=== PATIENT | male | born 1975 | race Caucasian/White ===

== ENCOUNTER 2020-02-13 09:50 | Day surgery (SDC) | payer OTHER ==
[~2020-02-13] VITALS: Ht 175.3 cm; Wt 79.4 kg
--- NOTE | ~2020-02-13 | OR ---
[facility] [address], [place] [address] Cancelled DATE OF OPERATION: 02/13/2020 SURGEON: Marissa Yousif MD CONTINUATION: INDICATIONS: The patient has failed medical treatment. His symptoms have continued on despite medical treatment. CT scan and his history and exam were consistent with the above diagnoses and surgery was indicated. The patient also had a large spur stabbing into the inferior turbinate on the right side and that needs to be corrected both for headaches as well as airway. DESCRIPTION OF PROCEDURE: The patient was placed in a supine position, had an orotracheal intubation, and was placed under general anesthesia. Photographs were taken preoperatively, intraoperatively, and postoperatively. The left side was approached first on undeviated septal side. The middle turbinate and uncinate process were injected with a couple of mL of 1% lidocaine with 1:100,000 epinephrine. The anterior inferior portion of the middle turbinate was trimmed away with Kerrison forceps, a Thru-cut ethmoid punch, and a microdebrider. A sickle knife was used to incise the uncinate process, then a Thru-cut ethmoid punch was used to cut through that and opened up the maxillary ostium. The patient had a very medial wall of the maxillary sinus. It was removed in the interest of airway and making the posterior section of the ethmoids better. The ethmoid intersinus septations were removed with Thru-cut ethmoid punch, Kerrison forceps. A transethmoidal sphenoidotomy was performed into the small sphenoid sinus on the left side. Changing to the scope of a 70-degree scope looking at the base of the skull, the bone was very thin in the posterior ethmoids area. This was noted on CT scan and that area was untouched with any instrumentation. Coming anterior to that the intersinus septations were removed, going up to the base of skull and up into the frontal recess. The anterior ethmoids and the frontal sinus had lots of polypoid mucosa or polyps. These were removed with a microdebrider, with a curved blade as well as the microdebrider and the Thru-cut ethmoid punch. A Kerrison frontal sinus punch was used to remove the beak of the frontal sinus widely, then removing all of the shards of bone and ragged mucosa carefully. NasoPore was placed with some mupirocin ointment. The septum was then repaired, making an incision on the right side after injecting the couple of mL of lidocaine. Incision was made with a 15 blade. The caudal dissection tool was used to lift up the mucoperichondrium and then mucoperiosteum deeper up inside. A D-knife was used to separate that bone from cartilage and then a blunt dissection to the blunt side of the caudal tool was used to lift up the mucoperiosteum on the PATIENT NAME: OMER MATTHEW OPERATIVE REPORT DATE OF : 73 REPORT #: [id number] PHYSICIAN: MARISSA YOUSIF MD PCP: NO PRIMARY CARE PHYSICIAN REPORT IS CONFIDENTIAL AND NOT TO BE RELEASED WITHOUT AUTHORIZATION [facility] [address], [place] [address] Cancelled contralateral side. Sykes scissors were used to section the deviated pieces of bone, so as not to produce any torsion on the cribriform plate. Inferiorly, the angulated chisel was used to cut the cleft and to take the large spur out. The flaps were then wasted together with 4-0 gut and the anterior incision was closed with 4-0 chromic[address] This opened the way to do the right sinus dissection. It was done precisely the same manner as the left side after injecting a couple of mL of lidocaine. The uncinate process was incised and removed. The ethmoid dissection was done completely. A transethmoidal sphenoidotomy performed on the right side. Using the 70 degrees scope, looking at the ceiling coming back, frontal sinus was opened widely. It was noted that a polyp was blocked in the sphenoid sinus on the the much larger of the 2 sinuses and lots of polypoid mucosa blocking the frontal sinus on the right side as well. A complete ethmoidectomy was performed trimming all of the shards of bone and ragged mucosa carefully. More NasoPore was placed with mupirocin ointment on the right side. That was the end of the procedure. Estimated blood was about 300 mL. There were no complications. The patient went to recovery room in good condition. Marissa Yousif MD [facility]/MODL /[id number] Copies: ~ PATIENT NAME: OMER MATTHEW OPERATIVE REPORT DATE OF : 73 REPORT #: [id number] PHYSICIAN: MARISSA YOUSIF MD PCP: NO PRIMARY CARE PHYSICIAN REPORT IS CONFIDENTIAL AND NOT TO BE RELEASED WITHOUT AUTHORIZATION
--- NOTE | 2020-02-13 14:28 | NUR ---
02/13/20 1428 Tresa Berg 1413- PT TO PACU IN SEMIFOWLERS POSITION. EYES CLOSED WITH ORAL AIRWAY IN PLACE. DOES NOT RESPOND TO VERBAL SIMULI. BREATHING EASY AND UNLABORED SP02 >95% ON 6 L O2 VIA SIMPLE MASK. 1416- PT REACHING TOWARDS FACE. ORAL AIRWAY REMOVED. PT PROMPTED TO BREATH THROUGH MOUTH AND NOT TOUCH FACE. PT WILL NOT OPEN EYES TO COMMANDS. O2 TITRATED TO ROOM AIR. 1422- PT DESATING TO 89 PERCENT. PT PROMPTED TO COUGH AND TAKE DEEP BREATHS. STRONG WET COUGH OBSERVED X 3. O2 PROVIDED AT 6 L VIA SIMPLE MASK. PT ENCOURAGED TO TAKE DEEP BREATHS. 1428- PT COUGHING AND TAKING DEEP BREATHS ON COMMAND. BREATHING IS EASY AND UNLABORED. SPO2 >95% ON 6 L O2 VIA SIMPLE MASK.
--- NOTE | 2020-02-13 15:42 | NUR ---
1520: MOUSTACHE DRESSING CHANGED. TOLERATING WATER. GIRLFRIEND AT BEDSIDE. CALL LIGHT WITHIN REACH.
--- NOTE | 2020-02-13 15:43 | NUR ---
LATE ENTRY 1500: PATIENT BACK IN DAY SURGERY ROOM FROM PACU. VS CHECKED. C/O PAIN 08/15. DRINKING WATER. DECLINES SOMETHING TO EAT AT THIS TIME. SCDs ON. IV SITE WNL. GIRLFRIEND AT BEDSIDE.
--- NOTE | 2020-02-13 16:41 | NUR ---
1605: VS CHECKED. PATIENT TOLERATED WATER AND BREAD ROLL. ASSISTED OOB AND TO BATHROOM. GAIT STEADY. 1620: MOUSTACHE DRESSING CHANGED. IV DC'D WNL. TIP INTACT. DRESSING APPLIED. DISCHARGE INSTRUCTIONS GIVEN TO PATIENT AND GIRLFRIEND. MEDICATED FOR PAIN WITH 1 TAB OF TYLENOL WITH CODEINE. 1630: MOUSTACHE DRESSING CHANGED AGAIN. HEENA AND JOYA SENT WITH PATIENT FOR RIDE HOME. PATIENT DISCHARGED TO HOME WITH GIRLFRIEND VIA WHEELCHAIR.
--- NOTE | 2020-02-18 13:25 | OR ---
[facility] [address], [place] [address] Signed DATE OF OPERATION: 02/13/2020 SURGEON: Mikel Yousif MD PREOPERATIVE DIAGNOSES: 1. Chronic frontal sinusitis. 2. Chronic maxillary sinusitis. 3. Chronic ethmoiditis. 4. Chronic sphenoiditis. 5. Deviated nasal septum. 6. Recurring acute sinusitis. 7. Nasal obstruction. POSTOPERATIVE DIAGNOSES: 1. Chronic frontal sinusitis. 2. Chronic maxillary sinusitis. 3. Chronic ethmoiditis. 4. Chronic sphenoiditis. 5. Deviated nasal septum. 6. Recurring acute sinusitis. 7. Nasal obstruction. PROCEDURES PERFORMED: 1. Bilateral endoscopic frontal ethmoidectomies, 95394-31. 2. Nasal septoplasty, 19773. 3. Bilateral endoscopic sphenoidotomies, 45270-97. 4. Bilateral endoscopic maxillary antrostomies, 34876-36. INDICATIONS: This 44-year-old gentleman has had sinus disease for decades. He was to have sinus surgery some years ago, but the surgery was canceled or denied for some reason. The patient continues on with the symptoms of chronic sinusitis, which are sinus headaches or pressure in the usual areas that refer to sinus pain or pressure, which are of frontal pain, periorbital, temporal, maxillary, and base of the occiput. The patient has had CT scan as part of his workup, which showed a diffuse inflammatory situation through all of the ethmoids. The patient has failed medical treatment. His symtoms have continued on despite medical treatment. CT scan and his history and exam were consistent with the above diagnosis and surgery indicated. The patient had a large spur stabbing into the inferior turbinate on the right side and that needs to be corrected both for headaches as well as airway. PATIENT NAME: OMER MATTHEW OPERATIVE REPORT DATE OF : 73 REPORT #: [id number] PHYSICIAN: MIKEL YOUSIF MD PCP: NO PRIMARY CARE PHYSICIAN REPORT IS CONFIDENTIAL AND NOT TO BE RELEASED WITHOUT AUTHORIZATION [facility] [address], [place] [address] Signed DESCRIPTION OF PROCEDURE: The patient was placed in a supine position, had an orotracheal intubation, and was placed under general anesthesia. Photographs were taken preoperatively, intraoperatively, and postoperatively. The left side was approached first on undeviated septal side. The middle turbinate and uncinate process were injected with a couple of mL of 1% lidocaine with 1:1000,000 epinephrine. The anterior inferior portion of the middle turbinate was trimmed away with Kerrison forceps, a Thru-cut ethmoid punch and a microdebrider. A sickle knife was used to incise the uncinate process, then a Thru-cut ethmoid punch used to cut through that and opened up the maxillary ostium. The patient had a very medial wall of the maxillary sinus. It was removed in the interest of airway and making the posterior section of the ethmoids better. The ethmoid intersinus septations were removed with Thru-cut ethmoid punch, Kerrison forcepts. A transethmoidal sphenoidotomy was performed into the small sphenoid sinus on the left side. Changing to the scope of a 70-degree scope looking at the base of the skull, the bone was very thin in the posterior ethmoids area. This was noted on CT scan and that area was untouched with any instrumentation. Coming anterior to that the intersinus septations were removed, going up to the base of the skull and up into the frontal recess. The anterior ethmoids and the frontal sinus had lots of polypoid mucosa or polyps. These were removed with a microdebrider, with a curved blade as well as the microdebrider and the Thru-cut ethmoid punch. Kerrison frontal sinus punch was used to remove the beak of the frontal sinus widely, then removing all of the shards of bone and ragged mucosa carefully. NasoPore was placed with some mupirocin ointment. The septum was then repaired, making an incision on the right side after injecting the couple of mL of lidocaine. Incision was made with a 15 blade. The caudal dissection tool was used to lift up the mucoperichondrium and then mucoperiosteum deeper up inside. A D-knife was used to separate that bone from cartilage and then a blunt dissection to the blunt side of the caudal tool was used to lift up the mucoperiosteum on the contralateral side. Sykes scissors were used to section the deviated pieces of bone so as not to produce any torsion on the cribriform plate. Inferiorly, the angulated chisel was used to cut the cleft and to take the large spurr out. The flaps were then wasted together with 4-0 gut and the anterior incision was closed with 4-0 chromic[address] This opened the way to do the right sinus dissection. It was done precisely the same manner as the left side after injecting a couple mL of lidocaine. The uncinate process was incised and removed. The ethmoid dissection was done completely. A transethmoidal sphenoidotomy performed on the right side. Using the 70 degrees scope, looking at the ceiling coming back, frontal sinus was opened widely. It was noted that a polyp was blocked in the spenoid sinus on the the much larger of the 2 sinuses and lots of polypoid mucosa blocking the frontal sinus on the right side as well. A complete ethmoidectomy was performed trimming all of the shards of bone and ragged mucosa carefully. More NasoPore was placed with mupirocin ointment on the right side. That was the end of the procedure. Estimated blood loss was about 300 mL. There were no complications. The patient went to recovery PATIENT NAME: OMER MATTHEW OPERATIVE REPORT DATE OF : 73 REPORT #: [id number] PHYSICIAN: MIKEL YOUSIF MD PCP: NO PRIMARY CARE PHYSICIAN REPORT IS CONFIDENTIAL AND NOT TO BE RELEASED WITHOUT AUTHORIZATION [address] [address] Signed room in good condition. Mikel Yousif MD [facility]/MODL /[id number] Copies: ~ PATIENT NAME: BRADY MATTHEWUA TIKA OPERATIVE REPORT DATE OF : 73 REPORT #: [id number] PHYSICIAN: MIKEL YOUSIF MD PCP: NO PRIMARY CARE PHYSICIAN REPORT IS CONFIDENTIAL AND NOT TO BE RELEASED WITHOUT AUTHORIZATION
--- NOTE | 2020-02-18 15:54 | PATH ---
[facility] [address] [place], [place] [address] Signed SPECIMEN(S): E SEPTUM SPECIMEN(S): A LEFT SIDE NASAL CONTENTS SPECIMEN(S): B LEFT SIDE NASAL CONTENTS SPECIMEN(S): C RIGHT SIDE NASAL CONTENTS SPECIMEN(S): D RIGHT SIDE NASAL CONTENTS SPECIMEN SOURCE: A. LEFT SIDE NASAL CONTENTS B. LEFT SIDE NASAL CONTENTS C. RIGHT SIDE NASAL CONTENTS D. RIGHT SIDE NASAL CONTENTS E. SEPTUM CLINICAL HISTORY: Chronic sinusitis. Septoplasty, endoscopic sinus surgery. FINAL PATHOLOGIC DIAGNOSIS: A. Tissue, left side nasal contents: - Consistent with mild chronic sinusitis. B. Tissue, additional left side nasal contents: - Consistent with mild chronic sinusitis. C. Tissue, right side nasal contents: - Consistent with mild chronic sinusitis. D. Tissue, additional right side nasal contents: - Consistent with mild chronic sinusitis. E. Nasal septum: - No microscopic pathologic diagnosis. COMMENT: Small fragments in specimens B and D are suggestive of nasal turbinate. Clinical correlation suggested. GRECIA:[id number] MICROSCOPIC EXAMINATION: Histologic sections of all submitted blocks are examined by light microscopy. These findings, together with the gross examination, support the pathologic diagnosis. GROSS DESCRIPTION: Five specimens are received in five containers, labeled "JL." A. The specimen, labeled "JL," and designated on the requisition "left side PATIENT NAME: OMER MATTHEW PATHOLOGY DATE OF : 73 REPORT #: [id number] PHYSICIAN: KARLA ROSALES PCP: NO PRIMARY CARE PHYSICIAN REPORT IS CONFIDENTIAL AND NOT TO BE RELEASED WITHOUT AUTHORIZATION [facility] [address], [place] [address] Signed nasal contents," is received in formalin and consists of multiple fragments of brown-orourke Magic soft tissue (3.2 x 3.2 x 0.4 cm in aggregate). The specimen is submitted entirely in cassette A1. B. The specimen, labeled "JL," and designated on the requisition "additional left side nasal contents," is received in formalin and consists of multiple fragments of brown-orourke to pink-orourke soft tissue and fragments of bone (2.7 x 1.6 x 0.3 cm in aggregate). The specimen is submitted entirely in cassette B1 following decalcification in decal STAT. C. The specimen, labeled "JL," and designated on the requisition "right side nasal contents," is received in formalin and consists of multiple fragments of brown-orourke to hemorrhagic soft tissue (3.0 x 2.8 x 0.5 cm in aggregate). The specimen is submitted entirely in cassette C1. D. The specimen, labeled "JL," and designated on the requisition "additional right side nasal contents," is received in formalin and consists of multiple fragments of pink-orourke to hemorrhagic tissue and bone (2.3 x 1.6 x 0.5 cm in aggregate). The specimen is submitted entirely in cassette D1 following decalcification in decal STAT. E. The specimen, labeled "JL," designated on the requisition "SEPTD," and "specimen E this portion of nasal septum" per the specimen notes, is received in formalin and consists of multiple fragments of white-orourke to hemorrhagic bone (2.7 x 3.2 x 0.5 cm in aggregate). The specimen is submitted entirely in cassette E1 following decal for in decal STAT. AC (under the direct supervision of a pathologist) The Gross Description was prepared using a voice recognition system. The report was reviewed for accuracy; however, sound-alike word errors, addition and/or deletions may occur. If there is any question about this report, please contact Client Services. PERFORMING LABORATORY: The technical component was performed by [employer] [address] (Computer Systems Administrator: Brandy Mathis MD; CLIA# [id number]). Professional interpretation was performed by [facility], [address] [facility] [address] [place], [place] [address] (CLIA# [id number]). Diagnostician: Giovanni Joshi MD Pathologist Electronically Signed 02/18/2020 PATIENT NAME: OMER MATTHEW PATHOLOGY DATE OF : 73 REPORT #: [id number] PHYSICIAN: KARLA PATHOLOGY PCP: NO PRIMARY CARE PHYSICIAN REPORT IS CONFIDENTIAL AND NOT TO BE RELEASED WITHOUT AUTHORIZATION [facility] [address] [facility] [place], [place] [address] Signed Copies: ~ PATIENT NAME: OMER MATTHEW PATHOLOGY DATE OF : 73 REPORT #: [id number] PHYSICIAN: KARLA PATHOLOGY PCP: NO PRIMARY CARE PHYSICIAN REPORT IS CONFIDENTIAL AND NOT TO BE RELEASED WITHOUT AUTHORIZATION
== END 2020-02-13 16:30 | disposition home or self-care (01) ==
LOC: DS 09:50 → OPS 09:50 → DS 10:45 → OPS 16:30
PROVIDERS: Otolaryngology
PROC: 09BS8ZZ Excision of Right Frontal Sinus, Via Natural or Artificial Opening Endoscopic (ICD-10-PCS; 2020-02-13)
PROC: 09BX8ZX Excision of Left Sphenoid Sinus, Via Natural or Artificial Opening Endoscopic, Diagnostic (ICD-10-PCS; 2020-02-13)
PROC: 09BW8ZX Excision of Right Sphenoid Sinus, Via Natural or Artificial Opening Endoscopic, Diagnostic (ICD-10-PCS; 2020-02-13)
PROC: 09TV8ZZ Resection of Left Ethmoid Sinus, Via Natural or Artificial Opening Endoscopic (ICD-10-PCS; 2020-02-13)
PROC: 09TU8ZZ Resection of Right Ethmoid Sinus, Via Natural or Artificial Opening Endoscopic (ICD-10-PCS; 2020-02-13)
PROC: 099R8ZZ Drainage of Left Maxillary Sinus, Via Natural or Artificial Opening Endoscopic (ICD-10-PCS; 2020-02-13)
PROC: 099Q8ZZ Drainage of Right Maxillary Sinus, Via Natural or Artificial Opening Endoscopic (ICD-10-PCS; 2020-02-13)
PROC: 09SM0ZZ Reposition Nasal Septum, Open Approach (ICD-10-PCS; 2020-02-13)
PROC: 09BT8ZZ Excision of Left Frontal Sinus, Via Natural or Artificial Opening Endoscopic (ICD-10-PCS; principal; 2020-02-13 10:45)
DX: J01.91 Acute recurrent sinusitis, unspecified (principal); J32.4 Chronic pansinusitis; J34.2 Deviated nasal septum; J34.89 Other specified disorders of nose and nasal sinuses; Z88.0 Allergy status to penicillin
CPT/HCPCS: 00160; J1100; J1885; J2001; J2250; J2405; J2704; J3010; J7121